=== PATIENT | female | born 1970 | race Caucasian/White ===

== ENCOUNTER 2022-05-22 10:25 | Day surgery (SDC) | payer MEDICAID ==
[2022-05-17 09:38] LABS: BASOPHILS % (AUTO) 0.8 % (0-1); EOSINOPHILS % (AUTO) 0.9 % (0-6); HEMATOCRIT 42.9 % (35.0-45.0); HEMOGLOBIN 14.9 g/dl (12.0-16.0); LYMPHOCYTES # (AUTO) 1.7 X10'3 (1.1-4.8); LYMPHOCYTES % (AUTO) 30.5 % (21-51); MEAN CORPUSCULAR HEMOGLOBIN 32.7 PG (27.0-31.0); MEAN CORPUSCULAR HGB CONC 34.8 g/dL (33.0-36.5); MEAN CORPUSCULAR VOLUME 93.9 FL (78-98); MEAN PLATELET VOLUME 9.8 FL (7.4-10.4); MONOCYTES # (AUTO) 0.5 X10'3 (0-0.9); MONOCYTES % (AUTO) 9.1 % (2-12); NEUTROPHILS # (AUTO) 3.2 X10'3 (1.8-7.7); NEUTROPHILS % (AUTO) 58.7 % (42-75); PLATELET COUNT 236 X10'3 (140-440); RED BLOOD COUNT 4.57 X10'6 (4.20-5.60); RED CELL DISTRIBUTION WIDTH 12.5 % (11.5-14.5); WHITE BLOOD COUNT 5.5 X10'3 (4.5-11.0)
[2022-05-17 09:51] LABS: APTT 27 SECONDS (22-32)
[2022-05-17 10:02] LABS: ALBUMIN 3.6 G/DL (3.4-5.0); ANION GAP 5 (8-16); BLOOD UREA NITROGEN 14 MG/DL (7-18); BUN/CREATININE RATIO 17.7 (6.6-38.0); CALCIUM 9.7 MG/DL (8.5-10.1); CHLORIDE 107 MMOL/L (99-107); CHOL/HDL RATIO 2.9 (0.00-4.99); CHOLESTEROL 155 MG/DL (0-200); CREATININE 0.79 MG/DL (0.40-0.90); GLUCOSE 109 MG/DL (70-104); HDL CHOLESTEROL 54 MG/DL (35-60); LDL CHOLESTEROL 79 MG/DL (50-100); POTASSIUM 3.3 MMOL/L (3.5-5.1); SODIUM 141 MMOL/L (135-145); TOTAL CARBON DIOXIDE 29.5 MMOL/L (24-32); TRIGLYCERIDES 160 MG/DL (20-135); eGFR 76 ML/MIN
[~2022-05-22] VITALS: Ht 162.6 cm; Wt 91.5 kg
[2022-05-22] VITALS (9 sets, daily range): BP systolic 110–133; BP diastolic 59–84
[2022-05-22] MEDS ORDERED: normal saline 1,000 ML IV SCH (10:40)
[2022-05-22] MEDS ORDERED: LORazepam 0.5 MG tablet PO PRN (10:40)
[2022-05-22] MEDS ORDERED: diphenhydrAMINE 25mg capsule PO PRN (10:40)
[2022-05-22] MEDS ORDERED: LOSA25TA41 PO (11:07)
[2022-05-22] MEDS ORDERED: DULO30CA52 PO (11:07)
[2022-05-22] MEDS ORDERED: DULO60CA65 PO (11:07)
[2022-05-22] MEDS ORDERED: POTA-206 PO (11:07)
[2022-05-22] MEDS ORDERED: HYDR12.55 PO (11:07)
[2022-05-22] MEDS ORDERED: NITR0.4T48 PO (11:07)
[2022-05-22] MEDS ORDERED: CARV6.253 PO (11:07)
[2022-05-22] MEDS ORDERED: ATOR40TA72 PO (11:07)
[2022-05-22] MEDS ORDERED: LEVO75TA7 PO (11:07)
[2022-05-22] MEDS ORDERED: ACET-1025 PO (11:13)
[2022-05-22] MEDS ORDERED: ASPI-1071 PO (11:13)
[2022-05-22] MEDS ORDERED: verapamil 2.5 mg/ml inj IV ONE (12:02)
[2022-05-22] MEDS ORDERED: LIDOcaine 1% (10mg/ml) 2ml vial ONE (12:03)
[2022-05-22] MEDS ORDERED: midazolam 1 mg/ML 2ml injection ONE ×2 (12:03→12:34)
[2022-05-22] MEDS ORDERED: iohexol 350MG/ML 100ml bottle IV ONE (12:03)
[2022-05-22] MEDS ORDERED: fentaNYL/PF 50MCG/1 ML 2ML syringe ONE (12:03)
[2022-05-22] MEDS ORDERED: heparin 1,000unit/ml 10ml vial 10 ML ONE (12:03)
[2022-05-22] MEDS ORDERED: nitroGLYCERIN-Tridil 50MG/D5W 250 ML IV ONE (12:04)
[2022-05-22] MEDS ORDERED: LIDOcaine 1% 30ml preserv. free vial ONE (12:44)
[2022-05-22] MEDS ORDERED: proCHLORperazine 10 MG/2 ml inj ONE (12:46)
[2022-05-22] MEDS ORDERED: HYDROcodone/acetaminophen 10/325mg tab PO PRN (13:35)
[2022-05-22] MEDS ORDERED: HYDROcodone/acetaminophen 5mg/325mg tablet PO PRN (13:35)
[2022-05-22] MEDS ORDERED: OXAZEpam 15mg capsule PO PRN (13:35)
== END 2022-05-22 16:05 | disposition home or self-care (01) ==
LOC: SSTAY O 10:25
PROVIDERS: ATTEND Student in an Organized Health Care Education/Training Program
DX: R94.39 Abnormal result of other cardiovascular function study (principal); I10 Essential (primary) hypertension; E03.9 Hypothyroidism, unspecified; F41.8 Other specified anxiety disorders; Z79.899 Other long term (current) drug therapy; Z79.01 Long term (current) use of anticoagulants; Z98.890 Other specified postprocedural states
CPT/HCPCS: 36415; 80048; 80061; 85025; 85610; 85730; 93005; 93458; 99152; 99153; C1760; C1769; C1894; J0780; J1644; J2250; J3010; J3490; J7030; Q0163; Q9967; A4620; A5120